=== PATIENT | male | born 1960 | race African-American/Black ===

== ENCOUNTER 2020-08-30 18:16 | Emergency (ER) | payer OTHER ==
[~2020-08-30] VITALS: Ht 190.5 cm; Wt 100.0 kg
[~2020-08-30 18:16] MED LIST: LISI2.5T PO; METF500T16 PO; cholesterol med
[2020-08-30 19:30] LABS: BASO # 0.1 x10^3/uL (0.0-0.2); BASO % 1 % (0-3); EOS # 0.1 x10^3/uL (0.0-0.7); EOS % 2 % (0-3); HEMATOCRIT 40.4 % (39.0-53.0); HEMOGLOBIN 14.1 g/dL (13.0-17.5); LYMPH # 1.9 x10^3/uL (1.0-4.8); LYMPH % 28 % (24-48); MEAN CORPUSCULAR HEMOGLOBIN 30 pg (25-35); MEAN CORPUSCULAR HGB CONC 35 g/dL (31-37); MEAN CORPUSCULAR VOLUME 86 fL (79-100); MONO # 1.1 x10^3/uL (0.0-1.1); MONO % 15 % (0-9); NEUT # 3.8 x10^3/uL (1.8-7.7); NEUT % 54 % (31-73); PLATELET COUNT 252 x10^3/uL (140-400); RED CELL DISTRIBUTION WIDTH 13.4 % (11.5-14.5)
[2020-08-30 19:32] LABS: BILIRUBIN,URINE SMALL (NEG); CLARITY,URINE TURBID; COLOR,URINE AMBER; NITRITE,URINE NEGATIVE (NEG); PROTEIN,URINE >=300 mg/dL (NEG-TRACE); UROBILINOGEN,URINE 0.2 mg/dL (0.2 mg/dL)
[2020-08-30 19:40] LABS: AMORPHOUS SEDIMENT,UR PRESENT /HPF
[2020-08-30 19:41] LABS: CALCIUM 9.8 mg/dL (8.5-10.1); CREATININE 1.6 mg/dL (0.7-1.3); GFR 53.8; POTASSIUM 3.1 mmol/L (3.5-5.1)
[2020-08-30 19:42] LABS: RBC,URINE 0 /HPF (0-2)
[2020-08-30 19:43] LABS: BARBITURATES NEG (NEG); BENZODIAZEPINES NEG (NEG); CANNABINOIDS NEG (NEG); COCAINE NEG (NEG); METHADONE NEG (NEG); OPIATES NEG (NEG); PHENCYCLIDINE NEG (NEG)
[2020-08-30] MEDS ORDERED: IV NORMAL SALINE 1000ML BAG 1,000 ML IV ONE (19:45)
[2020-08-30 19:47] LABS: AMPHETAMINE/METHAMPHETAMINE POS (NEG); BACTERIA,URINE 0 /HPF (0-FEW)
[2020-08-30 19:47] LABS: ALBUMIN/GLOBULIN RATIO 1.1 (1.0-1.7); MAGNESIUM 1.9 mg/dL (1.8-2.4); TOTAL BILIRUBIN 0.5 mg/dL (0.2-1.0); TOTAL PROTEIN 7.8 g/dL (6.4-8.2)
[2020-08-30 19:48] LABS: ACETAMIN < 2 mcg/ml (10-30); ETHANOL < 10 mg/dL (0-10); SALIC < 2.8 mg/dL (2.8-20.0)
[2020-08-30 19:48] LABS: HYALINE CASTS, URINE MANY /HPF; WBC,URINE RARE /HPF (0-4)
[2020-08-30] MEDS ORDERED: POTASSIUM CHLORIDE 10 MEQ TABLET.ER. PO ONE (20:00)
--- NOTE | 2020-08-30 20:09 | PHYS DOC ---
Past Medical History Past Medical History: Diabetes-Type II, Hypertension, Other Additional Past Medical Histor: elevated cholesterol Past Surgical History: Other Additional Past Surgical Histo: hernia repair X2 Smoking Status: Never Smoker Alcohol Use: Occasionally Drug Use: Marijuana General Adult EDM: Chief Complaint: DRUG ABUSE HPI: HPI: Patient is a 60 year old male who presented to for evaluation of substance abuse. Patient said he has been using methamphetamines, has some hallucinations yesterday, patient is afraid that his will leave him so he came here seeking help. Patient denies suicidal ideation denies homicidal lesion. Patie nt denies any chest pain, no abdominal pain, no cough or fever. Patient denies any other drug use. Review of Systems: Review of Systems: Constitutional: Denies fever or chills. [] Eyes: Denies change in visual acuity. [] HENT: Denies nasal congestion or sore throat. [] Respiratory: Denies cough or shortness of breath. [] Cardiovascular: Denies chest pain or edema. [] GI: Denies abdominal pain, nausea, vomiting, bloody stools or diarrhea. [] : Denies dysuria. [] Musculoskeletal: Denies back pain or joint pain. [] Integument: Denies rash. [] Neurologic: Denies headache, focal weakness or sensory changes. [] Endocrine: Denies polyuria or polydipsia. [] Lymphatic: Denies swollen glands. [] Psychiatric: Denies depression or anxiety. [] Heart Score: C/O Chest Pain: N/A Risk Factors: Risk Factors: DM, Current or recent (<one month) smoker, HTN, HLP, family history of CAD, obesity. Risk Scores: Score 0 - 3: 2.5% MACE over next 6 weeks - Discharge Home Score 4 - 6: 20.3% MACE over next 6 weeks - Admit for Clinical Observation Score 7 - 10: 72.7% MACE over next 6 weeks - Early Invasive Strategies Current Medications: Current Medications Medications (Trade) Dose Ordered Sig/Zachariah Start Time Stop Time Status Last Admin Dose Admin Lorazepam (Ativan Inj) 1 mg 1X ONCE 08/30/20 19:45 08/30/20 19:46 DC 08/30/20 19:50 1 MG Potassium Chloride (Klor-Con) 40 meq 1X ONCE 08/30/20 20:00 08/30/20 20:01 DC 08/30/20 20:03 40 MEQ Sodium Chloride 1,000 ml @ 1,000 mls/hr 1X ONCE 08/30/20 19:45 08/30/20 20:44 08/30/20 19:50 1,000 MLS/HR Allergies: Allergies: Allergies Coded Allergies Type Severity Reaction Last Updated Verified No Known Drug Allergies 04/16/15 No Physical Exam: PE: Constitutional: Well developed, well nourished, no acute distress, non-toxic appearance. [] HENT: Normocephalic, atraumatic, bilateral external ears normal, oropharynx moist, no oral exudates, nose normal. [] Eyes: PERRLA, EOMI, conjunctiva normal, no discharge. [] Neck: Normal range of motion, no tenderness, supple, no stridor. [] Cardiovascular:Heart rate regular rhythm, no murmur [] Lungs & Thorax: Bilateral breath sounds clear to auscultation [] Abdomen: Bowel sounds normal, soft, no tenderness, no masses, no pulsatile masses. [] Skin: Warm, dry, no erythema, no rash. [] Back: No tenderness, no CVA tenderness. [] Extremities: No tenderness, no cyanosis, no clubbing, ROM intact, no edema. [] Neurologic: Alert and oriented X 3, normal motor function, normal sensory function, no focal deficits noted. [] Psychologic: Affect normal, judgement normal, mood normal. [] Current Patient Data: Labs: Laboratory Tests Test 08/30/20 19:08 08/30/20 19:19 Urine Collection Type Unknown Urine Color Jewell Urine Clarity Turbid Urine pH 5.0 (<5.0-8.0) Urine Specific [place] >=1.030 (1.000-1.030) Urine Protein >=300 mg/dL (NEG-TRACE) Urine Glucose (UA) Negative mg/dL (NEG) Urine Ketones (Stick) Trace mg/dL (NEG) Urine Blood Moderate (NEG) Urine Nitrite Negative (NEG) Urine Bilirubin Small (NEG) Urine Urobilinogen Dipstick 0.2 mg/dL (0.2 mg/dL) Urine Leukocyte Esterase Negative (NEG) Urine RBC 0 /HPF (0-2) Urine WBC Rare /HPF (0-4) Urine Squamous Epithelial Cells Occ /LPF Urine Amorphous Sediment Present /HPF Urine Bacteria 0 /HPF (0-FEW) Urine Hyaline Casts Many /HPF Urine Mucus Marked /LPF Urine Opiates Screen Neg (NEG) Urine Methadone Screen Neg (NEG) Urine Barbiturates Neg (NEG) Urine Phencyclidine Screen Neg (NEG) Urine Amphetamine/Methamphetamine Pos (NEG) Urine Benzodiazepines Screen Neg (NEG) Urine Cocaine Screen Neg (NEG) Urine Cannabinoids Screen Neg (NEG) Urine Ethyl Alcohol Neg (NEG) White Blood Count 7.0 x10^3/uL (4.0-11.0) Red Blood Count 4.70 x10^6/uL (4.30-5.70) Hemoglobin 14.1 g/dL (13.0-17.5) Hematocrit 40.4 % (39.0-53.0) Mean Corpuscular Volume 86 fL (79-100) Mean Corpuscular Hemoglobin 30 pg (25-35) Mean Corpuscular Hemoglobin Concent 35 g/dL (31-37) Red Cell Distribution Width 13.4 % (11.5-14.5) Platelet Count 252 x10^3/uL (140-400) Neutrophils (%) (Auto) 54 % (31-73) Lymphocytes (%) (Auto) 28 % (24-48) Monocytes (%) (Auto) 15 % (0-9) H Eosinophils (%) (Auto) 2 % (0-3) Basophils (%) (Auto) 1 % (0-3) Neutrophils # (Auto) 3.8 x10^3/uL (1.8-7.7) Lymphocytes # (Auto) 1.9 x10^3/uL (1.0-4.8) Monocytes # (Auto) 1.1 x10^3/uL (0.0-1.1) Eosinophils # (Auto) 0.1 x10^3/uL (0.0-0.7) Basophils # (Auto) 0.1 x10^3/uL (0.0-0.2) Sodium Level 142 mmol/L (136-145) Potassium Level 3.1 mmol/L (3.5-5.1) L Chloride Level 105 mmol/L (98-107) Carbon Dioxide Level 25 mmol/L (21-32) Anion Gap 12 (6-14) Blood Urea Nitrogen 21 mg/dL (8-26) Creatinine 1.6 mg/dL (0.7-1.3) H Estimated GFR (Cockcroft-Gault) 53.8 BUN/Creatinine Ratio 13 (6-20) Glucose Level 161 mg/dL (70-99) H Calcium Level 9.8 mg/dL (8.5-10.1) Magnesium Level 1.9 mg/dL (1.8-2.4) Total Bilirubin 0.5 mg/dL (0.2-1.0) Aspartate Amino Transferase (AST) 30 U/L (15-37) Alanine Aminotransferase (ALT) 32 U/L (16-63) Alkaline Phosphatase 93 U/L (46-116) Total Protein 7.8 g/dL (6.4-8.2) Albumin 4.0 g/dL (3.4-5.0) Albumin/Globulin Ratio 1.1 (1.0-1.7) Salicylates Level < 2.8 mg/dL (2.8-20.0) L Salicylate Last Dose Date Salicylate Last Dose Time Acetaminophen Level < 2 mcg/ml (10-30) L Acetaminophen Last Dose Date Acetaminophen Last Dose Time Ethyl Alcohol Level < 10 mg/dL (0-10) Laboratory Tests 08/30/20 19:19 Laboratory Tests 08/30/20 19:19 Vital Signs: Vital Signs Date Time Temp Pulse Resp B/P (MAP) Pulse Ox O2 Delivery O2 Flow Rate FiO2 08/30/20 19:05 98.1 108 18 129/88 (102) 97 Room Air 98.1 EKG: EKG: [] Radiology/Procedures: Radiology/Procedures: [] Course & Med Decision Making: Course & Med Decision Making Pertinent Labs and Imaging studies reviewed. (See chart for details) Patient is a 60-year-old male who present to ER for evaluation of substance abuse. Patient has history of methamphetamine addict, he has been sober for 5- year, start doing methamphetamine again 3 days ago. Patient said he felt guilty about that. He was afraid that his will leave him so he come here for help. Patient denies any suicidal ideation, denies homicidal nation. Patient felt much better in the ER, he was evaluated by the psychiatric assessment team, denies suicidal ideation to her. Recommend to discharge home. Oscar Disclaimer: Dragon Disclaimer: This electronic medical record was generated, in whole or in part, using a voice recognition dictation system. Departure Departure Impression: Primary Impression: Substance abuse Disposition: HOME / SELF CARE / HOMELESS Condition: STABLE Referrals: NO PCP (PCP) Follow up with [facility] [address] [address] 24-HOUR Crisis Line: [phone] Patient Instructions: Substance Abuse-Brief Additional Instructions: Thank you for visiting our Emergency Department. We appreciate you trusting us with your care. If any additional problems come up don't hesitate to return to visit us. Please follow up with your primary care provider so they can plan additional care if needed and know about the problem that you had. If symptoms worsen come back to the Emergency Department. Any concerning symptoms that start such as chest pain, shortness of air, weakness or numbness on one side of the body, running high fevers or any other concerning symptoms return to the ER. POLI PATTERSON DO Aug 30, 2020 20:09
[2020-08-30 21:37] VITALS: BP 118/73
== END 2020-08-30 22:20 | disposition home or self-care (01) ==
LOC: ER 18:16
DX: F15.10 Other stimulant abuse, uncomplicated (principal); E11.9 Type 2 diabetes mellitus without complications; I10 Essential (primary) hypertension; Z98.890 Other specified postprocedural states
CPT/HCPCS: 36415; 80053; 80307; 80329; 81001; 83735; 85025; 96361; 96374; 99285; G0480; J2060; J7030

== ENCOUNTER 2020-12-03 10:43 | Emergency (ER) | payer SELFPAY ==
[~2020-12-03] VITALS: Ht 190.5 cm; Wt 102.7 kg
[~2020-12-03 10:43] MED LIST changes: -LISI2.5T PO; +LISI2.5T12 PO
[2020-12-03 11:00] VITALS: BP 186/98
--- NOTE | 2020-12-03 11:32 | PHYS DOC ---
Past Medical History Past Medical History: Diabetes-Type II, Hypertension, Other Additional Past Medical Histor: elevated cholesterol (MARIBEL MASON) Past Surgical History: Other Additional Past Surgical Histo: hernia repair X2 (MARIBEL MASON) Smoking Status: Never Smoker Alcohol Use: Occasionally Drug Use: Marijuana (MARIBEL MASON) General Adult EDM: Chief Complaint: SKIN PROBLEM HPI: HPI: Patient is a 60 year old male with history of seasonal allergies who presents wi th perioral dry cracked skin. Patient states that 2 weeks ago, he used the just for men reynolds dye on his facial hair. At that time, he had skin irritation and significant swelling. He was seen by his primary care at [facility] was given a prescription for prednisone. He states that the swelling has improved greatly, however he continues to have itching and burning around his mouth. Patient states he has used various kinds of lotion as well as Vaseline in order to alleviate his skin discomfort. Patient has no other complaints at this time. (MARIBEL MASON) Review of Systems: Review of Systems: ROS negative except as mentioned in HPI. (MARIBEL MASON) Heart Score: C/O Chest Pain: No (MARIBEL MASON) Allergies: Allergies: Allergies Coded Allergies Type Severity Reaction Last Updated Verified No Known Drug Allergies 04/16/15 No (MARIBEL MASON) Physical Exam: PE: Constitutional: Well developed, well nourished, no acute distress, non-toxic appearance. HENT: Normocephalic, atraumatic, bilateral external ears normal, oropharynx moist, no oral exudates, nose normal. See skin exam below. Eyes: PERRLA, EOMI, conjunctiva normal, no discharge. See skin exam below. Neck: Normal range of motion, no tenderness, supple, no stridor. Cardiovascular: Heart rate regular rhythm, no murmur. Lungs & Thorax: Bilateral breath sounds clear to auscultation. Skin: Skin is dry, cracked, and flaky 3 mm margin surrounding patient's goatee facial hair. Additionally, there is 1 area of similarly irritated skin inferior laterally to the right eye. Skin otherwise warm, dry, no erythema, no rash. (MARIBEL MASON) Current Patient Data: Vital Signs: Vital Signs Date Time Temp Pulse Resp B/P (MAP) Pulse Ox O2 Delivery O2 Flow Rate FiO2 12/03/20 11:00 98.4 60 18 186/98 (127) 99 Room Air 98.4 (MARIBEL MASON) Course & Med Decision Making: Course & Med Decision Making Pertinent Labs and Imaging studies reviewed. (See chart for details) Patient's presentation is consistent with irritant contact dermatitis. Patient is instructed to use topical [id number] Aquaphor around the areas of irritation. Additionally, he can use 2 tablets of Benadryl at night, which can immediately will help him to sleep better. He should also take [id number] daily antihistamine, which will help with his reported seasonal allergies as well. Patient understands and is agreeable to discharge plan. (MARIBEL MASON) Course & Med Decision Making I have reviewed and was available for consultation in the emergency department for this patient that was seen by midlevel provider. Agree with plan. Ramon Chong DO (RAMON CHONG DO) Oscar Disclaimer: Oscar Disclaimer: This electronic medical record was generated, in whole or in part, using a voice recognition dictation system. (MARIBEL MASON) Departure Departure Impression: Primary Impression: Contact dermatitis Qualified Codes: L24.3 - Irritant contact dermatitis due to cosmetics Disposition: 01 HOME / SELF CARE / HOMELESS Condition: STABLE Referrals: NO PCP (PCP) Patient Instructions: Contact Dermatitis, [id number] Additional Instructions: [facility] Address: [address] [place] [address] As discussed, the skin irritation should be treated by topical Aquaphor ointment, 2 tablets of Benadryl each night, and an oral antihistamine (Zyrtec, Claritin, Génesis) every morning. Above, there is contact information for a squilgeer. If your symptoms do not improve, you may follow-up with them at your convenience. Please return to the emergency department if you develop a fever, if the skin irritation becomes swollen/warm/dry, or if you have thick discharge from the affected skin. MARIBEL MASON Dec 03, 2020 11:32 RAMON CHONG DO Dec 06, 2020 06:52
== END 2020-12-03 12:00 | disposition home or self-care (01) ==
LOC: ER 10:43
DX: L24.3 Irritant contact dermatitis due to cosmetics (principal); E11.9 Type 2 diabetes mellitus without complications; I10 Essential (primary) hypertension; E78.00 Pure hypercholesterolemia, unspecified
CPT/HCPCS: 99282